=== PATIENT | female | born 1955 | race Caucasian/White ===

== ENCOUNTER → 2021-01-12 13:22 | Outpatient (CLI) | payer MEDICARE, SELFPAY ==
--- NOTE | 2021-01-12 | DI.US.S_ITS ---
LIMITED ULTRASOUND OF LEFT BREAST: 01/12/2021 CLINICAL: Patient returns today to evaluate a focal asymmetry in the left breast. Comparison is made to exam dated: 01/12/2021 [facility]. Real-time ultrasound of the left breast was performed. Suarez scale images of the real-time examination were reviewed. Dense fibroglandular tissue but no mass is identifed in the reported palpable area of concern, which corresponds with mammographic findings. IMPRESSION: NEGATIVE Dense fibroglandular tissue but no mass is identifed in the reported palpable area of concern in the left breast. Recommend clinical follow up. There is no sonographic evidence of malignancy. A 1 year screening mammogram is recommended. This exam was interpreted at Station ID: [id number]. Electronically Signed By: Sheng lake/kendall:01/12/2021 14:44:41 letter sent: Clinical Evaluation Ultrasound BI-RADS: 1 Negative
--- NOTE | 2021-01-12 | DI.MG.S_ITS ---
BILATERAL DIGITAL DIAGNOSTIC MAMMOGRAM 3D/2D: 01/12/2021 CLINICAL: Baseline exam. Left breast mass. No prior exams were available for comparison. The tissue of both breasts is heterogeneously dense. This may lower the sensitivity of mammography. There is dense, somewhat nodular breast tissue in the area of the reported palpable abnormality in the upper outer quadrant of the left breast without a distinct mass. No significant masses, calcifications, or other findings are seen in either breast. IMPRESSION: INCOMPLETE: NEEDS ADDITIONAL IMAGING EVALUATION Targeted ultrasound is recommended for further evaluation and will be performed immediately following this exam. This exam was interpreted at Station ID: [id number]. NOTE: For mammograms, a report in lay terms will be sent to the patient. Approximately 15% of breast malignancies will not be visualized mammographically. In the management of a palpable breast mass, a negative mammogram must not discourage biopsy of a clinically suspicious lesion. Electronically Signed By: Sheng lake/kendall:01/12/2021 14:35:27 ACR BI-RADS Category 0: Incomplete [id number]
== END ==
PROVIDERS: Family Provider Nurse Practitioner; PCP Family Medicine; Referring Provider Nurse Practitioner Family; Visit Provider Nurse Practitioner Family
DX: R92.8 Other abnormal and inconclusive findings on diagnostic imaging of breast (principal); N64.89 Other specified disorders of breast
CPT/HCPCS: 76642; 77066; G0279

== ENCOUNTER 2022-01-17 08:10 | Emergency (ER) | payer MEDICARE, SELFPAY ==
[2022-01-17 08:10] VITALS: BP 141/90; PULSE 83; RESP 18; TEMP 36.6; O2SAT 98; BMI 19.5
--- NOTE | 2022-01-17 08:14 | ED_ITS ---
HPI - Eye Problem General Chief complaint: Eye Problems Stated complaint: States possible detached retina Time Seen by Provider: 01/17/22 08:14 Source: patient Mode of arrival: Ambulatory Limitations: no limitations History of Present Illness HPI Narrative: This is a 66-year-old female who comes with concern for possible detached retina. Patient has had chronic eye issues, ocular migraines in the past. She noticed some fuzziness or fogginess of her vision that sort of localized at the entire field of vision for her left eye. She states it will even move a little bit. It has been intermittent for the past 4 days. She has had no black curtain or loss of vision, no pain, no ?lytes show? like she has with her ocular migraines, patient has not had any injection or drainage. No recent trauma or injury. She states that she has noticed some mild change in her vision over time. She wears reader is a but no other regular glasses. No prior eye surgeries. She denies any daily medications. She has had laparoscopic surgery for ovarian removal but no other reported surgeries. She lives on [address]. She has seen Dr. Mathew a local fire prevention research engineer in past to the for the diagnosis of ocular migraines. Related Data Home Medications Medication Instructions Recorded Confirmed CHOLECALCIFEROL (VITAMIN D) 2,000 iu PO QDAY #0 09/26/11 cyanocobalamin (vitamin B-12) 500 500 mcg PO EVERY OTHER DAY #0 08/04/12 mcg tablet (Vitamin B-12) [OMEGA-ALGAE] Q DAY #0 05/16/16 ascorbic acid (vitamin C) 500 mg 1,000 - 3,000 mg PO QDAY #0 tab 06/08/16 tablet [Chlorella] #0 06/22/16 [HRT] QDAY #0 12/25/16 Allergies Allergy/AdvReac Type Severity Reaction Status Date / Time No Known Drug Allergies Allergy Verified 01/17/22 08:30 Review of Systems Review of Systems ROS Unobtainable: All systems reviewed & are unremarkable except as noted in HPI and below Patient History Surgical History Status post ovarian cystectomy Family History Brother Age: 66 Cancer Father Age: 95 Skin cancer Cerebrovascular accident (CVA), unspecified mechanism High cholesterol Osteoporosis Mother Essential hypertension High cholesterol Cerebrovascular accident (CVA), unspecified mechanism Osteoporosis Sister Age: 69 Osteoporosis Sister Age: 63 Essential hypertension Social History Smoking Status: Never smoker Exam Narrative Exam Narrative: GEN: well nourished, well appearing female, alert and oriented x 3, patient appears to be in mild distress. HEENT: Atraumatic, pupils are equal round reactive to light, extraocular movements are intact, nares are clear, TMs are clear with no fluid, there is no conjunctival pallor. Throat is clear without any exudates, erythema, tonsillar enlargement or uvular deviation HEART: Regular rate and rhythm without murmur, clicks, rubs. No carotid bruits, pulses are equal in upper and lower extremities LUNGS:Lungs clear to auscultation, no wheezes, rales, crackles, chest moves symmetrically L 20/50, 20/30-R Visual acuity: right [20/50], left [20/30] without correction. IOP: Right 13 mm Hg, Left 15 mm Hg General: no globe trauma Eyelids: normal inspection. Conjunctiva/Sclera: normal inspection Corneas: normal inspection, examined with fluroscein on bilaterally. EOM: intact, no palsy/entrapment Pupils: PERRL, normal accomadation, pupil normal Anterior Chambers: normal inspection, no hypema Posterior: normal fundoscopic on right, on left patient does have sort of a fracture pattern and is black centrally in the posterior eye. MSCL: Full range of motion, normal gait NEURO:CN 2-12 intact, sensation normal SKIN: No rash, erythema or other skin changes noted. Initial Vital Signs Initial Vital Signs: Vital Signs Temperature 98 F 01/17/22 08:10 Pulse Rate 83 01/17/22 08:10 Respiratory Rate 18 01/17/22 08:10 Blood Pressure 141/90 H 01/17/22 08:10 Pulse Oximetry 98 01/17/22 08:10 Course Orders Ordered: Discontinued Medications Fluorescein Sodium (Fluorescein 1 Mg Strip) 1 mg EYE-BOTH NOW ONE Stop: 01/17/22 08:20 Last Admin: 01/17/22 08:24 Dose: 1 mg Documented by: SARAH Proparacaine HCl (Proparacaine 0.5% Ophth Renetta) 1 drops EYE-BOTH NOW ONE Stop: 01/17/22 08:20 Last Admin: 01/17/22 08:24 Dose: 1 drop Documented by: SARAH Consultations Consultation #1: Dr. Mathew, happy to see patient in the office. Reviewed her eye exam, discussed seems less likely retinal tear but possible, vitreous hemorrhage, patient walked over directly here from the emergency department for ophthalmology exam and they will take over care. Time: 08:50 Vital Signs Vital signs: Vital Signs - 8 hr 01/17/22 08:10 01/17/22 08:15 01/17/22 08:16 Temperature 98 F Pulse Rate 83 83 80 Respiratory Rate 18 Blood Pressure 141/90 H 141/90 H Pulse Oximetry 98 99 99 MDM - Eye Problem MDM Narrative Medical decision making narrative: This is a 66-year-old female with a fogginess of the left eye, no vision loss, but she does have a decrease in her visual acuity left compared to right on examination today. Patient's eye exam is otherwise reassuring. No acute neurologic changes appreciated otherwise. Patient does have change in her posterior eye exam and is referred her local ophthalmology to be evaluated today who is also her regular ophthalmology group, she was walked over by nursing to be seen now. Discharge Plan Departure Patient Disposition: Released, Other Clinical Impression: Alteration in vision Activity Restrictions/Additional Instructions: Follow-up with the fire prevention research engineer here at the hospital, Dr. Mathew. Head directly over to the office for evaluation, Dr. Mathew will see you today. Please return for sudden vision loss, pain, redness, drainage, new numbness, tingling or weakness difficulty with gait or walking, facial droop her speech issues or other new or concerning symptoms. Prescriptions: No Action CHOLECALCIFEROL (VITAMIN D) 2,000 iu PO QDAY Qty: 0 0RF cyanocobalamin (vitamin B-12) [Vitamin B-12] 500 MCG tablet 500 mcg PO EVERY OTHER DAY Qty: 0 0RF [OMEGA-ALGAE] Q DAY Qty: 0 0RF ascorbic acid (vitamin C) 500 MG tablet 1,000 - 3,000 mg PO QDAY Qty: 0 0RF [Chlorella] Qty: 0 0RF [HRT] QDAY Qty: 0 0RF Referrals: Robby Mathew MD [Physician] - Sophia Babcock ARNP [Primary Care Provider] -
[2022-01-17 08:15] VITALS: PULSE 83; O2SAT 99
[2022-01-17 08:16] VITALS: BP 141/90; PULSE 80; O2SAT 99
[2022-01-17] MEDS: FLUORESCEIN 1 MG STRIP EYE-BOTH (08:24)
[2022-01-17] MEDS: PROPARACAINE 0.5% OPHTH SOL 1 DROPS EYE-BOTH (08:24)
[2022-01-17 08:50] VITALS: BP 109/72; PULSE 66; RESP 18; O2SAT 98
== END 2022-01-17 08:51 | disposition home or self-care (01) ==
PROVIDERS: Emergency Provider Emergency Medicine; Family Provider Nurse Practitioner; PCP Nurse Practitioner Family
DX: H53.8 Other visual disturbances (principal)
CPT/HCPCS: 99282; 99283

== ENCOUNTER → 2022-07-26 12:28 | Outpatient (CLI) | payer MEDICARE, SELFPAY ==
--- NOTE | 2022-07-26 | DI.US.S_ITS ---
PROCEDURE: US PELVIC COMPLETE INDICATIONS: Unspecified ovarian cyst, left side TECHNIQUE: Real-time scanning was performed of the pelvic organs, with image documentation. Additional endovaginal scanning was necessary due to incomplete visualization of the adnexal and endometrial structures by transabdominal scanning. COMPARISON: [facility], [place], PELVIC COMPLETE, 06/06/2016, 12:26. FINDINGS: Uterus: Uterus is anteverted retroflexed and unremarkable in size for age at 4.2 x 4.0 x 2.2 cm. The myometrium is homogeneous. The endometrium measures 2 mm combined thickness. Small-moderate amount of fluid present in the uterine cavity. Ovaries: The right ovary measures 0.9 x 1.1 x 1.7 cm, with a calculated ovarian volume of 1 cc. The left ovary measures 0.8 x 1.0 x 1.9 cm, with a calculated ovarian volume of 1 cc. The ovaries have a unremarkable sonographic appearance for age. No adnexal masses are seen. Other: No pathologic free abdominal or pelvic fluid. IMPRESSION: 1. No ovarian cyst or adnexal mass visualized. 2. Small-moderate amount of fluid present in the uterine cavity, unclear etiology or clinical significance. This finding can be seen in the setting of cervical stenosis, but other etiologies of obstruction including benign or malignant etiologies are not excludable. Gynecology consultation may be helpful to direct further management. We strive to produce accurate, complete, and clear reports of imaging services. To assist us in improving patient care, this report was composed using standard report templates and voice recognition software. Therefore, it may contain abnormal punctuation, insertions and/or omissions. Occasional wrong-word or sound-alike substitutions may occur. Though we review the report and make efforts to correct it, we do recommend that the report be read carefully in proper context to recognize any text inaccuracies. Dictated by: Sheng Nieves M.D. on 07/26/2022 at 17:27 Approved by: Sheng Nieves M.D. on 07/26/2022 at 17:32
== END ==
PROVIDERS: Family Provider Nurse Practitioner; PCP Nurse Practitioner Family; Referring Provider Nurse Practitioner Family; Visit Provider Nurse Practitioner Family
DX: N83.202 Unspecified ovarian cyst, left side (principal); R19.04 Left lower quadrant abdominal swelling, mass and lump; N83.201 Unspecified ovarian cyst, right side
CPT/HCPCS: 76830; 76856

== ENCOUNTER 2022-09-06 11:24 | Day surgery (SDC) | payer MEDICARE, SELFPAY ==
--- NOTE | 2022-09-06 | PATH_ITS ---
[facility] Accession Number: [id number] No. of containers..01 Tissue . 01 Material submitted: . sigmoid colon - SIGMOID POLYP . 01 Diagnosis: Sigmoid Colon, Polyp, Biopsy: Tubular adenoma. [facility] 09/11/2022 1118 Local . 01 Electronically signed: . Chikis Montes MD, Pathologist NPI- [id number] . 01 Gross description: . SIGMOID POLYP: Received in formalin is 1 fragment(s) of moore, soft tissue measuring 0.7 x 0.7 x 0.7 cm submitted entirely in 1 cassette(s) /CIRILO 09/07/2022 2344 Local . 01 Pathologist provided ICD-10: D12.5 . 01 CPT . 987437 Specimen Comment: A courtesy copy of this report has been sent to [phone] Performed at: [address] [facility] [address] [place] [address], [place], [place] [id number] MD Edwardo Jensen MD Phone: [phone]
[2022-09-06 13:20] VITALS: BP 117/70; PULSE 60; RESP 14; TEMP 36.5; O2SAT 100; BMI 19.2
--- NOTE | 2022-09-06 14:09 | PM.HP.1 ---
History of Present Illness History of Present Illness Date Patient Seen: 09/06/22 Time Patient Seen: 14:09 Chief complaint: SCREENING COLONOSCOPY Narrative: Wendy is a 66-year-old woman here for colonoscopy. She has never had 1 before. She has no known family history of colon cancer. She reports that she occasionally feels a ?knot? in her left lower quadrant after she eats. Patient History Surgical History Status post ovarian cystectomy Family & Social History Family History Brother Age: 66 Cancer Father Age: 95 Skin cancer Cerebrovascular accident (CVA), unspecified mechanism High cholesterol Osteoporosis Mother Essential hypertension High cholesterol Cerebrovascular accident (CVA), unspecified mechanism Osteoporosis Sister Age: 69 Osteoporosis Sister Age: 63 Essential hypertension Social History: household members spouse Tobacco & Substance use: Smoking Status Never smoker alcohol intake never Substance Use Type does not use Meds Home Medications and Allergies Home Medications Medication Instructions Recorded Confirmed Type CHOLECALCIFEROL (VITAMIN D) 2,000 iu PO QDAY ##0 09/26/11 History [OMEGA-ALGAE] Q DAY ##0 05/16/16 History ascorbic acid (vitamin C) 500 mg 1,000 - 3,000 mg PO QDAY #0 tabs 06/08/16 History tablet [Chlorella] ##0 06/22/16 History [HRT] QDAY ##0 12/25/16 History Allergies Allergy/AdvReac Type Severity Reaction Status Date / Time No Known Drug Allergies Allergy Verified 01/17/22 08:30 Exam Vital Signs (past 8 hours): - 09/06/22 13:20 Temperature 97.7 F Pulse Rate 60 Respiratory Rate 14 Blood Pressure 117/70 Pulse Oximetry 100 Oxygen Delivery Method Room Air Oxygen Delivery Method Room Air Const General: No acute distress Assessment & Plan Assessment and plan (1) Colon cancer screening: Status: Acute Plan Wendy is a 66-year-old woman here for colon cancer screening. Reviewed risks and benefits of colonoscopy and she would like to proceed. Time Spent With Patient Critical Care time: I spent a total of [] minutes of critical care time on this patient's care today; this time is exclusive of procedural time.
--- NOTE | 2022-09-06 15:51 | PM.OP.COLON ---
Operative Date/Time/Diagnoses Date of procedure: 09/06/22 Time of procedure: 15:51 Pre-op diagnosis: Colon cancer screening Post-op diagnosis: same Procedure & Clinicians Study performed: Colonoscopy Same procedure as scheduled: Yes Surgeon: Ever Estevez Procedure Notes Procedure in detail: Surgeon: Ever Estevez MD Anesthesia: Dr. Huntley Procedure: The patient was brought to the endoscopy suite, placed in left lateral decubitus position. The patient was connected to monitoring devices. A time-out was performed. Sedation was administered. Once the patient was adequately sedated, a digital rectal exam was performed and was normal. The scope was then inserted and advanced as far as possible but the prep was inadequate to reach the cecum. The scope was then slowly withdrawn and the mucosa was inspected as well as possible given the inadequate prep. A 1 cm pedunculated polyp was seen in the distal sigmoid colon removed with a hot snare. It was retrieved with a Catalan net. The scope was reintroduced to the level of the polypectomy site. No other abnormalities were seen. The scope was retroflexed in the rectum. There were internal hemorrhoids but no other abnormalities. The scope was straightened and removed. The patient was awakened and brought to recovery. Scope withdrawal time: Not applicable Sedation time: 18 minutes EBL: 2 mL Findings: Inadequate prep, 1 cm pedunculated polyp in the distal sigmoid colon Post-procedure Disposition: PACU
[2022-09-06 15:53] VITALS: BP 125/77; PULSE 72; RESP 16; TEMP 36.6; O2SAT 98
[2022-09-06 15:58] VITALS: BP 134/74; PULSE 74; RESP 16; TEMP 36.9; O2SAT 98
[2022-09-06 16:00] VITALS: BP 120/70; PULSE 77; RESP 16; TEMP 36.2; O2SAT 99
== END 2022-09-06 16:20 | disposition home or self-care (01) ==
PROVIDERS: Family Provider Nurse Practitioner; PCP Family Medicine; Referring Provider Surgery; Visit Provider Surgery
PROC: 0DJD8ZZ Inspection of Lower Intestinal Tract, Via Natural or Artificial Opening Endoscopic (ICD-10-PCS; CPT 45378; principal; 2022-09-06 13:15)
DX: Z12.11 Encounter for screening for malignant neoplasm of colon (principal); D12.5 Benign neoplasm of sigmoid colon
CPT/HCPCS: 45385; J3010

== ENCOUNTER → 2022-10-25 12:03 | Outpatient (CLI) | payer MEDICARE, SELFPAY ==
--- NOTE | 2022-10-25 | DI.US.S_ITS ---
PROCEDURE: US ABDOMEN LIMITED INDICATIONS: LEFT LOWER QUADRANT ABDOMINAL MASS TECHNIQUE: Real-time focused scanning was performed of the abdomen, with image documentation. COMPARISON: None. FINDINGS: Targeted ultrasound of the left lower quadrant demonstrates no sonographic abnormality. IMPRESSION: No sonographic abnormality. Dictated by: Jp Lugo M.D. on 10/25/2022 at 15:37 Approved by: Jp Lugo M.D. on 10/25/2022 at 15:37
== END ==
PROVIDERS: Family Provider Nurse Practitioner; PCP Family Medicine; Referring Provider Nurse Practitioner Family; Visit Provider Nurse Practitioner Family
DX: R19.04 Left lower quadrant abdominal swelling, mass and lump (principal)
CPT/HCPCS: 76705